=== PATIENT | male | born 1995 ===

== ENCOUNTER 2018-07-27 10:51 | Emergency (ER) | payer OTHER ==
[~2018-07-27] VITALS: Ht 170.2 cm; Wt 86.1 kg
[2018-07-27 11:01] VITALS: BP 135/83
== END 2018-07-27 12:03 | disposition home or self-care (01) ==
LOC: ED 11:55
DX: S86.912A Strain of unspecified muscle(s) and tendon(s) at lower leg level, left leg, initial encounter (principal); X58.XXXA Exposure to other specified factors, initial encounter; Y93.I9 Activity, other involving external motion; Y92.410 Unspecified street and highway as the place of occurrence of the external cause; Y99.8 Other external cause status
CPT/HCPCS: 29515; 99283